=== PATIENT | female | born 1985 | race Caucasian/White ===

== ENCOUNTER 2016-05-21 19:04 | Emergency (ER) | payer MEDICAID ==
[~2016-05-21] VITALS: Ht 157.5 cm; Wt 74.0 kg
[~2016-05-21 19:04] MED LIST: FERR325C PO; IBUP-1542 PO; PNV1TABL32 PO; [UNRECOGNIZED DRUG - CODE] IV
[2016-05-21 19:49] VITALS: Ht 157.5 cm; Wt 74.0 kg
[2016-05-21] MEDS ORDERED: CIPR7.5D4 RIGHT EAR (19:57)
[2016-05-21] MEDS ORDERED: IBUP-1542 PO (19:57)
[2016-05-21] MEDS ORDERED: CETI10CA PO (19:57)
[2016-05-21] MEDS ORDERED: AMOX1TAB10 PO (19:57)
--- NOTE | 2016-05-21 20:05 | ERD ---
ER Documentation Chief Complaint Date/Time DATE: 05/21/16 TIME: 20:02 Chief Complaint right ear pain radiating to neck and fever x 3 days HPI 31-year-old female presents here in emergency department for complaints of right ear pain radiating to the right neck area fever on and off for 3 days. Patient describes the pain as throbbing pain, 6/10 scale, worse upon touching the outer ear and has muffled hearing with it. Patient denies any trauma in the ear. Patient denies deformity sensation in the ear. Patient denies any bloody discharge from the ear. Patient did not take any medications to help with symptoms. ROS All systems reviewed and are negative except as per history of present illness. Medications Home Meds Active Scripts Cetirizine Hcl* (Zyrtec*) 10 Mg Capsule, 10 MG PO DAILY, #30 TAB.CHEW Prov:KIKE CHRISTINE NP 05/21/16 Ibuprofen* (Motrin*) 600 Mg Tab, 600 MG PO Q6H Y for PAIN AND OR ELEVATED TEMP, #30 TAB Prov:KIKE CHRISTINE NP 05/21/16 Ciprofloxacin Hcl/Dexameth (Ciprodex Otic Suspension) 7.5 Ml Drops.susp, 4 DROP RIGHT EAR BID for 7 Days, EA Prov:KIKE CHRISTINE NP 05/21/16 Amoxicillin/Potassium Clav (Amox-Clav 875-125 mg Tablet) 875-125 mg Tab, 1 TAB PO BID for 10 Days, #20 TAB Prov:KIKE CHRISTINE NP 05/21/16 Ibuprofen* (Ibuprofen*) 600 Mg Tablet, 600 MG PO Q6, #20 TAB 0 Refills Prov:ELIO BRYANT MD 11/01/15 Reported Medications Ferrous Sulfate (Iron) 325 Mg Capsr, 325 MG PO DAILY 06/29/13 Calcium Chloride (Ca Chloride) 1.36 Meq/Ml Soln, 13.6 MEQ IV DAILY 06/29/13 Vit/Fe Fumarate/Fa ( Low Iron Tablet) 1 Tab Tablet, 1 TAB PO DAILY 06/29/13 Allergies Allergies: Coded Allergies: No Known Allergy (Unverified , 10/31/15) PMhx/Soc Medical and Surgical Hx: pt denies Medical Hx, pt denies Surgical Hx History of Surgery: No Hx Miscellaneous Medical Probl: No FmHx Family History: No coronary disease, No diabetes, No other Physical Exam Vitals Vital Signs Date Time Temp Pulse Resp B/P Pulse Ox O2 Delivery O2 Flow Rate FiO2 05/21/16 19:49 100.2 102 20 129/71 96 Physical Exam GENERAL: The patient is well developed and appropriate for usual state of health, in no apparent distress. HEENT: Atraumatic. Ears: Right ear tympanic membrane noted to be erythematous and bulging. Left ear tympanic membrane is normal, no erythema or bulging. Right ear canal noted to be erythematous and swollen. No left ear canal swelling. No ear discharge. Nose: normal nasal turbinates, no erythema or swelling. Normal nasal discharge. Throat: oropharynx clear. No tonsillar swelling or tonsillar exudates. No lymphadenopathy. CHEST: Clear to auscultation bilaterally. There are no rales, wheezes or rhonchi. HEART: Regular rate and rhythm. No murmurs, clicks, rubs or gallops. No S3 or S4. ABDOMEN: Soft, nontender and nondistended. Good bowel sounds. No rebound or guarding. No gross peritonitis. No gross organomegaly or masses. No Houston sign or McBurney point tenderness. BACK: No midline or flank tenderness. EXTREMITIES: Equal pulses bilaterally. There is no peripheral clubbing, cyanosis or edema. No focal swelling or erythema. Full range of motion. Grossly neurovascularly intact. NEURO: Alert and oriented. Cranial nerves 2-12 intact. Motor strength in all 4 extremities with 5/5 strength. Sensation grossly intact. Normal speech and gait. SKIN: There is no apparent rash or petechia. The skin is warm and dry. HEMATOLOGIC AND LYMPHATIC: There is no evidence of excessive bruising or lymphedema. No gross cervical, axillary, or inguinal lymphadenopathy. Procedures/MDM Medical decision making: Patient's symptoms most likely is consistent with a combination of otitis externa and otitis media. No symptoms of mastoiditis. No symptoms of sepsis at this time. Patient's low-grade fever, but is controlled at this time. No symptoms of hemodynamic instability. No symptoms of cellulitis , mastoiditis, abscess. Patient was given for Augmentin, ibuprofen, Zyrtec, Ciprodex otic drops, is advised to follow-up with primary care doctor in 2-3 days for reevaluation of symptoms. Patient is advised to return to emergency department for any worsening symptoms Departure Diagnosis: Primary Impression: Otitis externa Otitis externa type: unspecified type Laterality: right Chronicity: acute Qualified Code: H60.501 - Acute otitis externa of right ear, unspecified type Additional Impression: Otitis media Otitis media type: serous Laterality: right Chronicity: acute Recurrence : not specified as recurrent Qualified Code: H65.01 - Right acute serous otitis media, recurrence not specified Condition: Stable Patient Instructions: Otitis Media, Abx Tx (Adult), External Ear Infection ( Adult) KIKE CHRISTINE NP May 21, 2016 20:04
== END 2016-05-21 19:59 | disposition home or self-care (01) ==
LOC: E/R 19:04
DX: H60.501 Unspecified acute noninfective otitis externa, right ear (principal); H65.01 Acute serous otitis media, right ear
CPT/HCPCS: 99284

== ENCOUNTER 2016-12-12 20:00 | Emergency (ER) | payer MEDICAID ==
[~2016-12-12] VITALS: Ht 165.1 cm; Wt 121.5 kg
[~2016-12-12 20:00] MED LIST changes: +AMOX1TAB10 PO; +CETI10CA PO; +CIPR7.5D4 RIGHT EAR
[2016-12-12 20:30] VITALS: Ht 165.1 cm; Wt 121.5 kg
[2016-12-12] MEDS ORDERED: IBUPROFEN 800 MG TAB PO ONE (23:00)
[2016-12-12] MEDS ORDERED: PENICILLIN G BENZ 1.2 MIL UNIT SYG IM ONE (23:00)
[2016-12-12] MEDS ORDERED: IBUPROFEN 800 MG TAB ONE (23:25)
[2016-12-13] MEDS ORDERED: IBUP800T25 PO (00:29)
[2016-12-13] MEDS ORDERED: HYDR-902 PO (00:29)
--- NOTE | 2016-12-13 00:32 | ERD ---
ER Documentation Chief Complaint Chief Complaint fever, ST, STAHL and ear pain since this last night HPI This is a 31-year-old female complains of day 1 of fever to 102, sore throat, headache and right ear pain. She has no nausea vomiting diarrhea. She has severe sore throat when she swallows. She does not have any voice change. She has a popping sound in her right ear when she opens her jaw. She has no ear discharge or loss of hearing. Nose runny nose no sneezing. ROS All systems reviewed and are negative except as per history of present illness. Medications Home Meds Active Scripts Ibuprofen* (Motrin*) 800 Mg Tab, 800 MG PO Q6H Y for PAIN AND OR ELEVATED TEMP, #30 TAB Prov:REYNA HOUSER DO 12/13/16 Hydrocodone/Acetaminophen ([place] 10-325 Tablet) 1 Each Tablet, 1 TAB PO Q6H Y for PAIN, #20 TAB Prov:REYNA HOUSER DO 12/13/16 Cetirizine Hcl* (Zyrtec*) 10 Mg Capsule, 10 MG PO DAILY, #30 TAB.CHEW Prov:KIKE CHRISTINE NP 05/21/16 Ibuprofen* (Motrin*) 600 Mg Tab, 600 MG PO Q6H Y for PAIN AND OR ELEVATED TEMP, #30 TAB Prov:KIKE CHRISTINE NP 05/21/16 Ciprofloxacin Hcl/Dexameth (Ciprodex Otic Suspension) 7.5 Ml Drops.susp, 4 DROP RIGHT EAR BID for 7 Days, EA Prov:KIKE CHRISTINE NP 05/21/16 Amoxicillin/Potassium Clav (Amox-Clav 875-125 mg Tablet) 875-125 mg Tab, 1 TAB PO BID for 10 Days, #20 TAB Prov:KIKE CHRISTINE NP 05/21/16 Ibuprofen* (Ibuprofen*) 600 Mg Tablet, 600 MG PO Q6, #20 TAB 0 Refills Prov:ELIO BRYANT MD 11/01/15 Reported Medications Ferrous Sulfate (Iron) 325 Mg Capsr, 325 MG PO DAILY 06/29/13 Calcium Chloride (Ca Chloride) 1.36 Meq/Ml Soln, 13.6 MEQ IV DAILY 06/29/13 Vit/Fe Fumarate/Fa ( Low Iron Tablet) 1 Tab Tablet, 1 TAB PO DAILY 06/29/13 Allergies Allergies: Coded Allergies: No Known Allergy (Unverified , 12/12/16) PMhx/Soc Medical and Surgical Hx: pt denies Medical Hx, pt denies Surgical Hx History of Surgery: No Hx Miscellaneous Medical Probl: No Hx Alcohol Use: No Hx Substance Use: No Hx Tobacco Use: No Smoking Status: Never smoker FmHx Family History: No coronary disease Physical Exam Vitals Vital Signs Date Time Temp Pulse Resp B/P Pulse Ox O2 Delivery O2 Flow Rate FiO2 12/12/16 22:39 101.3 135 16 129/84 98 Room Air 12/12/16 20:30 102.9 137 18 129/75 99 Physical Exam Const: Well-developed, well-nourished Head: Atraumatic, normocephalic Eyes: Normal Conjunctiva, PERRLA, EOMI, normal sclera, no nystagmus ENT: Normal External Ears, Nose and Mouth, moist mucus membranes, bilateral tonsils are red and swollen with exudate no peritonsillar abscess, no difficulty breathing or airway compromise. Neck: Full range of motion. No meningismus, no lymphadenopathy. Resp: Clear to auscultation bilaterally, no wheezing, rhonchi, rales Cardio: Regular rate and rhythm, no murmurs, S1 S2 present Abd: Soft, non tender x 4, non distended. Normal bowel sounds, no guarding or rebound, no pulsitile abdominal masses or bruits Skin: No petechiae or rashes, no ecchymosis , no maculopapular rash Back: No midline or flank tenderness Ext: No cyanosis, or edema, FROM x 4, normal inspection, neurovascularly intact x 4 Neur: Awake and alert, STR 5/5 x 4, sensation intact x 4, no focal findings, cerebellum intact Psych: Normal Mood and Affect Results 24 hrs Current Medications Medications (Trade) Dose Ordered Sig/Angel Route PRN Reason Start Time Stop Time Status Last Admin Dose Admin Ibuprofen (Motrin) 800 mg ONCE ONCE PO 12/12/16 23:00 12/12/16 23:01 DC 12/12/16 23:28 Penicillin G Benzathine (Bicillin La) 1,200,000 units ONCE ONCE IM 12/12/16 23:00 12/12/16 23:01 DC 12/12/16 23:00 Ibuprofen (Motrin) 800 mg STK-MED ONCE .ROUTE 12/12/16 23:25 12/12/16 23:33 DC Procedures/MDM Patient received some Motrin. Her heart rate is already improved to 118 has a fever of 100. Fluctuates of fever is gone heart rate is better. Received Bicillin LA will discharge on [place] and Motrin Departure Diagnosis: Primary Impression: Pharyngitis Pharyngitis/tonsillitis etiology: unspecified etiology Qualified Code: J02.9 - Pharyngitis, unspecified etiology Condition: Stable Patient Instructions: Pharyngitis, Strep (Confirmed) REYNA HOUSER DO Dec 13, 2016 00:32
[2016-12-13 01:19] VITALS: BP 100/71; PULSE 98; RESP 16; TEMP 98.8
== END 2016-12-13 01:19 | disposition home or self-care (01) ==
LOC: E/R 20:00
DX: J02.9 Acute pharyngitis, unspecified (principal)
CPT/HCPCS: 96372; J0561; Z7502; Z7610